=== PATIENT | female | born 1955 | race Caucasian/White ===

== ENCOUNTER 2019-12-12 07:40 | Outpatient (CLI) | payer BC, OTHER ==
[2019-12-12 16:20] LABS: #Basophils 0.1 thou/uL (0.0-0.2); #Lymphocytes 2.3 thou/uL (1.20-3.40); #Monocytes 0.3 thou/uL (0.11-0.59); #Neutrophils 6.5 thou/uL (1.40-6.50); %Basophils 0.7 % (0.0-1.0); %Eosinophils 0.3 % (0.0-10.0); %Lymphocytes 25.1 % (21.0-51.0); %Monocytes 3.1 % (0.0-10.0); %Neutrophils 70.7 % (42.0-75.0); Hemoglobin 14.2 g/dL (12.0-16.0); Mean Corpuscular Hemoglobin 31.5 pg (27.0-31.0); Mean Corpuscular Volume 92.8 fL (78.0-98.0); Mean Platelet Volume 8.6 fL (7.4-10.4); Platelet Count 202 thou/uL (130-400); RBC Distribution Width 11.9 % (11.5-14.5); Red Blood Cell (RBC) Count 4.49 mill/uL (4.20-5.40); White Blood Cell (WBC) Count 9.2 thou/uL (4.8-10.8)
[2019-12-12 16:29] LABS: Anion Gap 17 mmol/L (10-20); BUN (Urea Nitrogen) 18 mg/dL (9.8-20.1); Calc. Creatinine Clearance 0 mL/min (70-130); Calcium 9.7 mg/dL (7.8-10.44); Carbon Dioxide 22 mmol/L (23-31); Chloride 106 mmol/L (98-107); Estimated GFR-MDRD 56; Glucose 121 mg/dL (80-115); Potassium 4.4 mmol/L (3.5-5.1); Sodium 141 mmol/L (136-145)
[2019-12-13 11:15] LABS: SARS-CoV-2 MS2 Positive; SARS-CoV-2 N Gene Negative; SARS-CoV-2 S Gene Negative; SARS-CoV-2 by NAA Not Detected (NotDetected); SARS-CoV-2 orf1ab Negative
== END 2019-12-12 07:41 | disposition home or self-care (01) ==
LOC: LABBT 07:40
PROVIDERS: ATTEND Specialist
DX: Z01.818 Encounter for other preprocedural examination (principal); R92.1 Mammographic calcification found on diagnostic imaging of breast; Z20.828 Contact with and (suspected) exposure to other viral communicable diseases
CPT/HCPCS: 80048; 85025; 87635; 93005; 93010; U0003

== ENCOUNTER 2019-12-17 06:42 | Day surgery (SDC) | payer BC ==
[2019-12-12 14:02] VITALS: BMI 31.6
[2019-12-17] MEDS ORDERED: Ketorolac Tromethamine 30 MG/ML VIAL ONE (08:00)
[2019-12-17] MEDS ORDERED: Acetaminophen 500 MG TAB ONE (08:00)
[2019-12-17] MEDS ORDERED: Levofloxacin 500 mg/D5W 100 ml Premix Bag ONE (08:07)
[2019-12-17] MEDS ORDERED: Bupivacaine/Epinephrine 0.25% 30 ML VIAL ONE (08:55)
[2019-12-17] MEDS ORDERED: Fentanyl 100 MCG/2 ML VIAL ONE (09:44)
--- NOTE | 2019-12-17 10:26 | MMO ---
Surgical specimen mammography HISTORY: Microcalcifications. Excisional biopsy. FINDINGS: Mammographic evaluation of the surgical specimen obtained by Dr. Barnard shows the localiza tion wire and microcalcifications overlying the soft tissue specimen. Results were called to Dr. Barnard in or the at 1018 hours. Code CR
[2019-12-17] MEDS ORDERED: Ondansetron PF 4 MG/2 ML Vial ONE (14:40)
[2019-12-17] MEDS ORDERED: PROPOFOL 200 MG/20 ML VIAL ONE (14:40)
[2019-12-17] MEDS ORDERED: Lidocaine 1% PF 5 ML VIAL ONE (14:40)
[2019-12-17] MEDS ORDERED: Dexamethasone 20 MG/5 ML VIAL ONE (14:40)
--- NOTE | 2019-12-18 11:22 | OP ---
DATE OF PROCEDURE: 12/17/2019 PREOPERATIVE DIAGNOSIS: Concerning right breast microcalcifications. POSTOPERATIVE DIAGNOSIS: Concerning right breast microcalcifications. PROCEDURE PERFORMED: Mammographic needle localized right breast excisional biopsy. ANESTHESIA: General with laryngeal mask airway. INDICATIONS: The patient is a 64-year-old white female. She had recent mammography showing a concerning area of microcalcifications within the lower right breast. She had concerns about having a stereotactic biopsy and although she understood it was a significantly more involved procedure, she preferred to have a biopsy of her right breast performed under anesthesia. Mammographic needle localization has therefore been arranged. DESCRIPTION OF OPERATION: Informed consent was obtained. The patient was taken to the operating room, where general anesthesia obtained with the patient in the supine position. The localizing needle that had been placed in mammography entered the right breast in a medial to lateral fashion in the lower right breast. Images of the localization were reviewed and the calcifications were visualized relative to the needle. The breast was prepped with ChloraPrep and draped in sterile fashion. A vertical/radial incision was created 2 cm medial to the needle entry site. Dissection was carried through skin and subcutaneous tissue. Dissection was initially carried medially to identify the needle. I identified the depth of needle, penetration of the glandular tissue, removed the needle and replaced the localizing wire to the incision. Flaps were raised around the localizing wire medially, laterally, superiorly, and inferiorly. The breast tissue was grasped with Allis clamps. A wide core of tissue was obtained around the localizing wire, focusing on the tissue anterior and superior to the wire. The specimen was removed intact with the wire and the dissection had gone just beyond the curve in the wire. It was tagged for orientation and submitted for specimen mammography. This revealed that the calcifications were present within the specimen. It was then submitted to pathology. Meticulous hemostasis obtained within the wound. It was irrigated with saline. The wound was closed in layers with 3-0 and 4-0 Monocryl. Dermabond was placed externally. There were no complications. The patient tolerated the procedure well and was taken to recovery room in stable condition. Job ID: [id number]
== END 2019-12-17 11:54 | disposition home health service (06) ==
LOC: SDC 06:42
PROVIDERS: ATTEND Specialist
PROC: 0H9T0ZX Drainage of Right Breast, Open Approach, Diagnostic (ICD-10-PCS; principal; 2019-12-17)
PROC: 0HBT0ZZ Excision of Right Breast, Open Approach (ICD-10-PCS; principal; 2019-12-17)
DX: D05.11 Intraductal carcinoma in situ of right breast (principal); Z88.0 Allergy status to penicillin; Z88.2 Allergy status to sulfonamides
CPT/HCPCS: 19281; 76098; 88307; 88341; 88342; J0690; J1100; J1885; J1956; J2405; J2704; J3010

== ENCOUNTER 2020-01-02 08:44 | Outpatient (CLI) | payer BC, OTHER ==
[2020-01-02 17:09] LABS: SARS-CoV-2 MS2 Positive; SARS-CoV-2 N Gene Negative; SARS-CoV-2 S Gene Negative; SARS-CoV-2 by NAA Not Detected (NotDetected); SARS-CoV-2 orf1ab Negative
== END 2020-01-02 08:45 | disposition home or self-care (01) ==
LOC: LABBT 08:44
PROVIDERS: ATTEND Specialist
DX: D05.11 Intraductal carcinoma in situ of right breast (principal); Z20.828 Contact with and (suspected) exposure to other viral communicable diseases
CPT/HCPCS: 87635; U0003

== ENCOUNTER 2020-01-07 07:17 | Day surgery (SDC) | payer BC ==
--- NOTE | 2020-01-07 08:47 | NM ---
PROCEDURE: Lymphoscintigraphy of the right breast HISTORY: Right lower inner quadrant breast cancer CONTACT LENS FITTER: Sylvie AGENT: 398 uCi of technetium 99 M filtered sulfur colloid TECHNIQUE: The breast was prepped with alcohol in the periareolar region. The radiopharmaceutical was injected into 4 spots surrounding the nipple at the 12:00, 3:00, 6:00, and 9:00 positions. Massage was performed of the breast helping the radiopharmaceutical enter the lymphatics. Images obta ined showed uptake of the radiopharmaceutical within an axillary lymph node. IMPRESSION: Right axillary sentinel lymph node
[2020-01-07] MEDS ORDERED: PHENYLEPHRINE-NS 100 MCG/ML 10 ML SYRINGE ONE (08:49)
[2020-01-07] MEDS ORDERED: Dexamethasone 20 MG/5 ML VIAL ONE (08:49)
[2020-01-07] MEDS ORDERED: Ondansetron PF 4 MG/2 ML Vial ONE ×2 (08:49→10:44)
[2020-01-07] MEDS ORDERED: PROPOFOL 200 MG/20 ML VIAL ONE (08:49)
[2020-01-07] MEDS ORDERED: Lidocaine 1% PF 5 ML VIAL ONE (08:49)
[2020-01-07] MEDS ORDERED: Ketorolac Tromethamine 30 MG/ML VIAL ONE (09:15)
[2020-01-07] MEDS ORDERED: Acetaminophen 500 MG TAB ONE (09:15)
[2020-01-07] MEDS ORDERED: Levofloxacin 500 mg/D5W 100 ml Premix Bag ONE (09:45)
[2020-01-07] MEDS ORDERED: Methylene Blue 50 MG/10 ML AMPUL ONE (10:14)
[2020-01-07] MEDS ORDERED: Bupivacaine/Epinephrine 0.25% 30 ML VIAL ONE ×2 (10:14→11:32)
[2020-01-07] MEDS ORDERED: Fentanyl 100 MCG/2 ML VIAL ONE ×3 (10:17→13:10)
[2020-01-07] MEDS ORDERED: Isosulfan Blue 50 MG/5 ML VIAL ONE (10:17)
[2020-01-07] MEDS ORDERED: Famotidine/PF 20 mg/2ml Vial ONE (10:43)
[2020-01-07] MEDS ORDERED: Scopolamine 1.5 mg/72 hour Patch ONE (10:43)
[2020-01-07] MEDS ORDERED: HYDROcodone/Acetaminophen 5/325 mg Tablet ONE ×2 (15:13→15:52)
--- NOTE | 2020-01-08 01:51 | OP ---
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 OPERATION PERFORMED: Re-excision of right breast lumpectomy cavity with margins obtained on the medial, inferior, and deep aspects of the biopsy cavity, right axillary sentinel lymph node biopsy. ANESTHESIA: General and endotracheal. INDICATIONS: Patient is a 64-year-old white female. She had previously undergone a needle localized excisional biopsy of the right breast calcifications. This revealed high-grade ductal carcinoma in situ. One of the margins was positive and others were close. There were also areas of potential microinvasion. For this reason, I had recommended reexcision of the lumpectomy margins and sentinel lymph node biopsy. She has undergone lymphoscintigraphy, which demonstrated axillary lymph nodes as the sentinel nodes. DESCRIPTION OF OPERATION: Informed consent was obtained. Patient was taken to the operating room, where general anesthesia obtained patient supine position. 3 mL of Lymphazurin was infiltrated in the subdermal periareolar tissue of the right breast and massaged for 5 minutes. The breast and axilla were then prepped with ChloraPrep and draped in a sterile fashion. Attention was turned first to the axilla. Local anesthetic was infiltrated using 0.25% Marcaine with epinephrine. A transverse low axillary incision was created and dissection was carried through skin and subcutaneous tissue. Neoprobe was utilized to identify areas of maximum radio intensity. I identified two separate highly radioactive nodes within the right axilla. Each of these were blue-stained as well. They were dissected and all investing lymphatics were divided between clamps and 3-0 silk ties. There was no other area of significant radio intensity within the axilla. The wound was irrigated and meticulous hemostasis was obtained with electrocautery. The wound was closed in layers with 3-0 and 4-0 Monocryl. Attention was turned to the right breast. Her incision from her prior procedure was a radial incision at about the 7 o'clock radian. This incision was reopened after local anesthetic was infiltrated. Dissection was carried down to the prior biopsy cavity. After this was opened and the cavity seroma was aspirated, margins were obtained initially along the medial aspect (which was the only margin that was truly positive for DCIS). I then obtained an inferior margin that was in fact in continuity with the medial margin and finally the posterior margin, which had been in contact with both the medial and inferior margin. Each of these was removed intact and tagged with sutures for orientation. Meticulous hemostasis was obtained within the wound. It was irrigated and all irrigant was aspirated. The wound was closed in layers with 3-0 and 4-0 Monocryl. Dermabond was placed externally over both incisions. There were no complications. The patient tolerated the procedure well, was taken recovery room in stable condition. Job ID: [id number]
== END 2020-01-07 16:00 | disposition home or self-care (01) ==
LOC: SDC 07:17
PROVIDERS: ATTEND Specialist
PROC: 07B50ZX Excision of Right Axillary Lymphatic, Open Approach, Diagnostic (ICD-10-PCS; principal; 2020-01-07)
PROC: 0HBT0ZZ Excision of Right Breast, Open Approach (ICD-10-PCS; principal; 2020-01-07)
DX: D05.11 Intraductal carcinoma in situ of right breast (principal); Z88.0 Allergy status to penicillin; Z88.2 Allergy status to sulfonamides
CPT/HCPCS: 78195; 88307; 88342; A9541; J0690; J1100; J1885; J1956; J2405; J2704; J3010; Q9968; S0028

== ENCOUNTER 2020-04-05 13:30 | Emergency (ER) | payer MEDICARE, BC ==
[2020-04-05] MEDS ORDERED: Cefepime 2 GM VIAL ONE (14:01)
[2020-04-05 14:36] LABS: #Basophils 0.1 thou/uL (0.0-0.2); #Eosinphils 0.1 thou/uL (0.0-0.7); #Lymphocytes 1.9 thou/uL (1.20-3.40); #Monocytes 0.6 thou/uL (0.11-0.59); #Neutrophils 8.9 thou/uL (1.40-6.50); %Basophils 0.8 % (0.0-1.0); %Eosinophils 0.6 % (0.0-10.0); %Lymphocytes 16.5 % (21.0-51.0); %Monocytes 4.8 % (0.0-10.0); %Neutrophils 77.2 % (42.0-75.0); Hemoglobin 13.6 g/dL (12.0-16.0); Mean Corpuscular HGB CONC 33.3 g/dL (32.0-36.0); Mean Corpuscular Hemoglobin 30.5 pg (27.0-31.0); Mean Corpuscular Volume 91.5 fL (78.0-98.0); Mean Platelet Volume 7.9 fL (7.4-10.4); Platelet Count 178 thou/uL (130-400); RBC Distribution Width 11.7 % (11.5-14.5); Red Blood Cell (RBC) Count 4.46 mill/uL (4.20-5.40); White Blood Cell (WBC) Count 11.5 thou/uL (4.8-10.8)
[2020-04-05 15:00] LABS: ALT (SGPT) 23 U/L (8-55); AST (SGOT) 24 U/L (5-34); Albumin 4.6 g/dL (3.4-4.8); Alkaline Phosphatase 88 U/L (40-110); Anion Gap 16 mmol/L (10-20); BUN (Urea Nitrogen) 15 mg/dL (9.8-20.1); Bilirubin, Total 0.9 mg/dL (0.2-1.2); Calc. Creatinine Clearance 0 mL/min (70-130); Calcium 9.5 mg/dL (7.8-10.44); Carbon Dioxide 27 mmol/L (23-31); Chloride 101 mmol/L (98-107); Globulin 2.8 g/dL (2.4-3.5); Glucose 97 mg/dL (80-115); Potassium 4.2 mmol/L (3.5-5.1); Protein, Total 7.4 g/dL (5.8-8.1); Sodium 140 mmol/L (136-145)
== END 2020-04-05 17:25 | disposition home or self-care (01) ==
LOC: ERS 13:30
DX: N61.0 Mastitis without abscess (principal)
CPT/HCPCS: 36415; 80053; 83605; 85025; 87040; 96365; 96366; 96367; J0692; J3370; J7030

== ENCOUNTER 2022-03-10 13:21 | Outpatient (CLI) | payer MEDICARE | END 2022-03-10 13:22 | disposition home or self-care (01) | LOC: RAD 13:21 | PROVIDERS: ATTEND Internal Medicine Hematology & Oncology | DX: M54.50 Low back pain, unspecified (principal) | CPT/HCPCS: 72100 ==

== ENCOUNTER 2025-02-19 10:32 | Outpatient (CLI) | payer MEDICARE | END 2025-02-19 10:33 | disposition home or self-care (01) | LOC: BICRAD 10:32 | PROVIDERS: ATTEND Internal Medicine | DX: C50.111 Malignant neoplasm of central portion of right female breast (principal); M85.88 Other specified disorders of bone density and structure, other site; M16.0 Bilateral primary osteoarthritis of hip | CPT/HCPCS: 73521 ==